=== PATIENT | female | born 2000 | race Caucasian/White ===

== ENCOUNTER 2021-09-28 14:25 | Emergency (ER) | payer OTHER ==
[~2021-09-28] VITALS: Ht 162.6 cm; Wt 77.4 kg
[2021-09-28 14:30] VITALS: BP 126/73
--- NOTE | 2021-09-28 15:25 | RAD ---
XR CHEST 1V History: Reason: chest pain / Spl. Instructions: / History: Comparison: None. Findings: No consolidation or pleural effusion. Normal heart size. No pneumothorax. Impression: 1. No acute cardiopulmonary process. Electronically signed by: Ken Richard DO (09/28/2021 3:23 PM) [facility]
--- NOTE | 2021-09-28 15:47 | PHYS DOC ---
Past History Additional Past Medical Histor: Scoliosis (SWATILIZZIE Christophe YOUTH LEADER) Past Surgical History: Other Additional Past Surgical Histo: back (SWATILIZZIE YOUTH LEADER) Alcohol Use: None (LIZZIE LONGORIA Christophe YOUTH LEADER) Adult General Chief Complaint Chief Complaint: CHEST PAIN HPI HPI Patient is a 21-year-old female patient with no significant medical history presented today complaining of slight intermittent episodes of substernal chest pain nonradiating, symptoms occurred yesterday as well as today. She states she currently has no chest pain. She states when he took this for a few seconds. Denies anything specifically exacerbating or relieving her pain. Denies any fever, coughing but reports slight nasal congestion from seasonal allergies (LIZZIE LONGORIA Christophe YOUTH LEADER) Review of Systems Review of Systems Constitutional: Denies fever or chills [] Eyes: Denies change in visual acuity, redness, or eye pain [] HENT: Denies nasal congestion or sore throat [] Respiratory: Denies cough or shortness of breath [] Cardiovascular: Reports chest pain GI: Denies abdominal pain, nausea, vomiting, bloody stools or diarrhea [] : Denies dysuria or hematuria [] Musculoskeletal: Denies back pain or joint pain [] Integument: Denies rash or skin lesions [] Neurologic: Denies headache, focal weakness or sensory changes [] ] All other systems were reviewed and found to be within normal limits, except as documented in this note. (LIZZIE LONGORIA Christophe YOUTH LEADER) Allergies Allergies Allergies Coded Allergies Type Severity Reaction Last Updated Verified Penicillins Allergy Unknown 09/28/21 Yes Sulfa (Sulfonamide Antibiotics) Allergy Unknown 09/28/21 Yes (LIZZIE LONGORIA Christophe YOUTH LEADER) Physical Exam Physical Exam Constitutional: Well developed, well nourished, no acute distress, non-toxic appearance. [] HENT: Normocephalic, atraumatic, bilateral external ears normal, oropharynx moist, no oral exudates, nose normal. [] Eyes: PERRLA, EOMI, conjunctiva normal, no discharge. [] Neck: Normal range of motion, no tenderness, supple, no stridor. [] Cardiovascular:Heart rate regular rhythm, no murmur [] Lungs & Thorax: Bilateral breath sounds clear to auscultation [] Abdomen: Bowel sounds normal, soft, no tenderness, no masses, no pulsatile masses. [] Skin: Warm, dry, no erythema, no rash. [] Back: No tenderness, no CVA tenderness. [] Extremities: No tenderness, no cyanosis, no clubbing, ROM intact, no edema. [] Neurologic: Alert and oriented X 3, normal motor function, normal sensory function, no focal deficits noted. [] Psychologic: Affect normal, judgement normal, mood normal. [] (LIZZIE LONGORIA YOUTH LEADER) Current Patient Data Vital Signs Vital Signs Date Time Temp Pulse Resp B/P (MAP) Pulse Ox O2 Delivery O2 Flow Rate FiO2 09/28/21 14:30 98.3 100 16 126/73 (90) 100 Room Air (LIZZIE LONGORIA YOUTH LEADER) EKG EKG [address] Rose sinus rhythm heart rate 76 no STEMI [] (LIZZIE LONGORIA YOUTH LEADER) Radiology/Procedures Radiology/Procedures []PROCEDURE: CHEST AP ONLY XR CHEST 1V History: Reason: chest pain / Spl. Instructions: / History: Comparison: None. Findings: No consolidation or pleural effusion. Normal heart size. No pneumothorax. Impression: 1. No acute cardiopulmonary process. Electronically signed by: Ken Richard DO (09/28/2021 3:23 PM) [facility] DICTATED AND SIGNED BY: KEN RICHARD DO DATE: 09/28/21 1522 CC: KEVYN FAUSTIN MD; LIZZIE LONGORIA MAZIN ~MTH0 0 (LIZZIE LONGORIA YOUTH LEADER) Heart Score C/O Chest Pain: Yes HEART Score for Chest Pain: HEART Score for Chest Pain Response (Comments) Value History Slighlty/Non-Suspicious 0 ECG Normal 0 Age < 45 0 Risk Factors No Risk Factors 0 Troponin < Normal Limit 0 Total 0 Risk Factors: Risk Factors: DM, Current or recent (<one month) smoker, HTN, HLP, family history of CAD, obesity. Risk Scores: Risk Factors: DM, Current or recent (<one month) smoker, HTN, HLP, family history of CAD, obesity. (LIZZIE LONGORIA YOUTH LEADER) Course & Med Decision Making Course & Med Decision Making Pertinent Labs and Imaging studies reviewed. (See chart for details) This is a 21-year-old female patient presented to the ED today complaining of intermittent episodes of chest pain since yesterday. Patient has no chest pain in the ED. EKG is negative, chest x-ray is negative Current blood pressure is 118/70 84 Discharged to home. Follow-up with PCP and feeder associate. Provided return precautions. (LIZZIE LONGORIA APRN) Course & Med Decision Making I was the Attending physician on the above date of service of this patient. This patient was evaluated, examined, treated, and dispositioned from the emergency department by the mid-level practitioner. Although I was working at the time , no assistance was requested. Electronically signed, Lynn Rose DO (LYNN ROSE DO) Dragon Disclaimer Dragon Disclaimer This electronic medical record was generated, in whole or in part, using a voice recognition dictation system. (LIZZIE LONGORIA APRN) Departure Departure: Impression: Primary Impression: Chest pain Disposition: HOME / SELF CARE / HOMELESS Condition: STABLE Referrals: KEVYN FAUSTIN MD (PCP) follow up in one week LEONID MARTIN MD follow up in one week Patient Instructions: Chest Pain (Nonspecific) Additional Instructions: You were evaluated in the emergency room for chest pain, your EKG is negative, your chest x-ray is negative. We highly recommend you follow-up with your primary care doctor as well as the provided feeder associate in 1 week Problem Qualifiers Primary Impression: Chest pain Chest pain type: unspecified Qualified Codes: R07.9 - Chest pain, unspecified LIZZIE LONGORIA APRN Sep 28, 2021 15:46 LYNN ROSE DO Sep 29, 2021 06:04
--- NOTE | 2021-09-28 16:09 | EKG ---
[address] [address] Test Date: 2021-09-28 Test Time: 15:06:48 Pat Name: TONY MARROQUIN Department: Room: Gender: F [place]: ELIAS : 2000 Requested By: LIZZIE LONGORIA Order Number: [id number] Reading MD: Ramiro Moscoso Measurements Intervals [place] Rate: 76 P: 0 TX: 108 QRS: 54 QRSD: 90 T: 25 QT: 372 QTc: 418 Interpretive Statements SINUS RHYTHM NORMAL ECG RI6.02 No previous ECG available for comparison Electronically Signed On 09-29-2021 14:32:12 [employer] by Ramiro Moscoso
== END 2021-09-28 16:11 | disposition home or self-care (01) ==
LOC: ER 14:25
DX: R07.2 Precordial pain (principal); Z88.0 Allergy status to penicillin; Z88.2 Allergy status to sulfonamides
CPT/HCPCS: 71045; 93005; 99283